=== PATIENT | male | born 1995 | race Caucasian/White ===

== ENCOUNTER 2019-04-03 21:39 | Inpatient (IN) | payer OTHER, BC ==
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
[2019-04-03] MEDS ORDERED: MORPHINE SULFATE 4 MG/ML SYRINGE IVP STA (21:58)
[2019-04-03] MEDS ORDERED: ONDANSETRON 4 MG/2 ML VIAL IVP STA (21:59)
--- NOTE | 2019-04-03 22:26 | XR ---
EXAM: XR Left Forearm, 2 Views CLINICAL HISTORY: Pain TECHNIQUE: Frontal and lateral views of the left forearm. COMPARISON: No relevant prior studies available. FINDINGS: Bones/joints: Unremarkable. No acute fracture. No dislocation. Soft tissues: Moderate edema within the soft tissues of the forearm. No soft tissue gas or foreign body. IMPRESSION: Moderate edema within the soft tissues of the forearm. Findings may be infectious.
--- NOTE | 2019-04-03 22:35 | XR ---
EXAM: XR Left Humerus, 2 or More Views CLINICAL HISTORY: ITS.REASON XR Reason: Pain TECHNIQUE: Frontal and lateral views of the left humerus. COMPARISON: No relevant prior studies available. FINDINGS: Bones/joints: No acute fracture. No dislocation. Soft tissues: Possible laceration/emphysema along the lateral aspect of the soft tissues near the mid shaft of the humerus. IMPRESSION: No acute osseous findings.
[2019-04-03] MEDS ORDERED: LIDOCAINE 1% INJ 10MG/ML (20 ML MDV) SQ ONE (22:55)
[2019-04-03] MEDS ORDERED: HYDROmorphone 1 MG/ML 1 ML SYRINGE IVP STA (22:58)
[2019-04-03] MEDS ORDERED: DIPH,PERTUS(ACELL)TETVAC-LF 0.5 ML VIAL IM ONE (22:59)
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
[2019-04-03 23:38] LABS: Basophils % (A) 0 %; Eosinophils # (A) 0.1 k/uL (0-0.7); Eosinophils % (A) 1 %; HCT 42.9 % (39.0-53.0); Lymphocytes # (A) 1.8 k/uL (1.0-4.8); Lymphocytes % (A) 18 %; MCH 26.4 pg (25.0-35.0); MCHC 32.7 g/dL (31.0-37.0); MCV 80.9 fL (80.0-100.0); Mean Platelet Volume 10.2; Monocytes # (A) 0.6 k/uL (0-1.0); Monocytes % (A) 6 %; Neutrophils # (A) 7.4 k/uL (1.3-7.7); Neutrophils % (A) 73 %; Platelet Count 195 k/uL (150-450); RBC 5.31 m/uL (4.30-5.90); RDW 13.8 % (11.5-15.5); WBC 10.1 k/uL (3.8-10.6)
[2019-04-03 23:47] LABS: ALT 152 U/L (21-72); AST 74 U/L (17-59); African American GFR (CKD) >90 (>60 ml/min/1.73 sqM); Alcohol <10 mg/dL; Alkaline Phosphatase 87 U/L (38-126); Anion Gap 14 mmol/L; Blood Urea Nitrogen 15 mg/dL (9-20); Carbon Dioxide 20 mmol/L (22-30); Chloride 105 mmol/L (98-107); Glucose 110 mg/dL (74-99); Potassium 4.2 mmol/L (3.5-5.1); Sodium 139 mmol/L (137-145); Total Bilirubin 0.6 mg/dL (0.2-1.3); Total Protein 7.8 g/dL (6.3-8.2)
[2019-04-03 23:54] LABS: Prothrombin Time 10.6 sec (9.0-12.0)
[2019-04-04 00:11] LABS: Partial Thromboplastin Time 20.9 sec (22.0-30.0)
[2019-04-04] MEDS ORDERED: ACETAMINOPHEN TAB 325 MG TAB PO PRN (00:41)
[2019-04-04] MEDS ORDERED: NALOXONE 0.4 MG/ML 1 ML VIAL IV PRN (00:41)
[2019-04-04] MEDS ORDERED: HYDROcodone/APAP 5-325MG 1 EACH TAB PO PRN (00:41)
[2019-04-04] MEDS: SODIUM CHLORIDE 0.9% 1,000 ML IV SCH ×4 (01:03→22:04)
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
[2019-04-04] MEDS: MORPHINE SULFATE 4 MG/ML SYRINGE IV PRN ×4 (04:39→18:14)
[2019-04-04] MEDS: FAMOTIDINE 20 MG TAB PO SCH ×2 (08:34→22:04)
[2019-04-04] MEDS ORDERED: SODIUM CHLORIDE 0.9% 1,000 ML IV ONE (09:36)
[2019-04-04] MEDS ORDERED: DEXAMETHASONE SOD PHOSPHATE 10 MG/ML 1 ML VIAL IV ONE ×2 (10:10→22:10)
[2019-04-04] MEDS ORDERED: ONDANSETRON 4 MG/2 ML VIAL IVP ONE ×2 (10:12→22:12)
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
[2019-04-04 11:18] LABS: Appearance,Urine Clear (Clear); Bilirubin,Urine Negative (Negative); Blood,Urine Negative (Negative); Color,Urine Yellow; Glucose,Urine (UA) Negative (Negative); Ketones,Urine 1+ (Negative); Leukocyte Esterase,Urine Negative (Negative); Nitrite,Urine Negative (Negative); Protein,Urine Trace (Negative); Specific Gravity,Urine 1.034 (1.001-1.035); Urobilinogen,Urine <2.0 mg/dL (<2.0)
[2019-04-04 13:02] LABS: Basophils % (A) 0 %; Eosinophils % (A) 0 %; HCT 38.6 % (39.0-53.0); HGB 12.7 gm/dL (13.0-17.5); Lymphocytes % (A) 13 %; MCH 27.3 pg (25.0-35.0); Mean Platelet Volume 10.1; Monocytes # (A) 0.9 k/uL (0-1.0); Monocytes % (A) 11 %; Neutrophils # (A) 5.6 k/uL (1.3-7.7); Neutrophils % (A) 74 %; Platelet Count 160 k/uL (150-450); RBC 4.65 m/uL (4.30-5.90); WBC 7.5 k/uL (3.8-10.6)
[2019-04-04 13:11] LABS: ALT 106 U/L (21-72); AST 49 U/L (17-59); African American GFR (CKD) >90 (>60 ml/min/1.73 sqM); Albumin 3.6 g/dL (3.5-5.0); Alkaline Phosphatase 55 U/L (38-126); Anion Gap 6 mmol/L; Blood Urea Nitrogen 13 mg/dL (9-20); Calcium 8.4 mg/dL (8.4-10.2); Carbon Dioxide 26 mmol/L (22-30); Chloride 106 mmol/L (98-107); Glucose 96 mg/dL (74-99); Potassium 3.9 mmol/L (3.5-5.1); Sodium 138 mmol/L (137-145); Total Bilirubin 0.8 mg/dL (0.2-1.3)
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
[2019-04-04] MEDS: ACETAMINOPHEN IV (For NPO) 1,000 MG in EMPTY BAG 1 BAG IVPB SCH ×3 (14:18→22:12)
--- NOTE | 2019-04-04 20:43 | P.HPADDEND ---
H&P Addendum H&P Addendum Date: 04/04/19 Patient seen and evaluated. Family members at bedside provides additional history of large gaping wound along the anterior aspect of the axilla. He had been earlier seen by orthopedic providers. Separately, moderate debris of the wound warranting washout. At bedside strength intact. Seam Presser 4+ out of 5 strength bilateral hands and equal bilaterally. Edema noted along the forearm and arm left. We'll proceed with mechanical debridement washout of wound and closure.
[2019-04-04] MEDS ORDERED: IV FLUID CONTINUATION 1,000 ML IV ONE ×2 (21:30)
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
[2019-04-04] MEDS ORDERED: LIDOCAINE 1% INJ 10MG/ML (20 ML MDV) ONE (22:29)
[2019-04-04] MEDS ORDERED: fentaNYL (PF) 50 MCG/ML 2 ML AMP ONE (22:29)
[2019-04-04] MEDS ORDERED: SUCCINYLCHOLINE CHLORIDE 100 MG/5 ML SYR IV ONE (22:29)
[2019-04-04] MEDS ORDERED: PROPOFOL 10 MG/ML 20 ML VIAL IV ONE (22:29)
[2019-04-04] MEDS ORDERED: MIDAZOLAM 2 MG/2 ML VIAL ONE (22:29)
[2019-04-04] MEDS ORDERED: ceFAZolin 1,000 MG VIAL IVPB ONE (22:48)
[2019-04-04] MEDS ORDERED: LACTATED RINGERS 1,000 ML IV ONE (22:55)
[2019-04-04] MEDS ORDERED: BACITRACIN OINT 1 EACH PACKET TOPICAL ONE (23:00)
[2019-04-05] MEDS ORDERED: ONDANSETRON 4 MG/2 ML VIAL IVP PRN (00:39)
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
[2019-04-05 00:57] LABS: Amphetamine Screen,Urine Not Detected (NotDetected); Barbiturate Screen,Urine Not Detected (NotDetected); Benzodiazepines Screen,Urine Not Detected (NotDetected); Cocaine Screen,Urine Not Detected (NotDetected); Methadone Screen, Urine Not Detected (NotDetected); Opiate Screen,Urine Detected (NotDetected); Oxycodone Screen, Urine Not Detected (NotDetected); Phencyclidine Screen,Urine Not Detected (NotDetected); Tricyclic Antidepressant,Urine Not Detected (NotDetected); Urn Cannabinoid Scrn Not Detected (NotDetected)
[2019-04-05] MEDS: MORPHINE SULFATE 4 MG/ML SYRINGE IV PRN ×2 (04:31→09:27)
[2019-04-05] MEDS: SODIUM CHLORIDE 0.9% 1,000 ML IV SCH ×3 (04:38→15:16)
[2019-04-05] MEDS: ACETAMINOPHEN IV (For NPO) 1,000 MG in EMPTY BAG 1 BAG IVPB SCH ×2 (05:39→13:30)
[2019-04-05] MEDS: FAMOTIDINE 20 MG TAB PO SCH ×2 (07:52→20:26)
[2019-04-05] MEDS: HEPARIN SODIUM,PORCINE 5,000 UNIT/ML 1 ML VIAL SQ SCH ×2 (07:52→20:26)
[2019-04-05] MEDS ORDERED: HYDROmorphone 2 MG/ML 1 ML SYRINGE IVP ONE (12:00)
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
[2019-04-06] MEDS: SODIUM CHLORIDE 0.9% 1,000 ML IV SCH ×3 (07:09→21:28)
[2019-04-06 07:43] LABS: Basophils % (A) 0 %; Eosinophils # (A) 0.1 k/uL (0-0.7); Eosinophils % (A) 1 %; HCT 32.9 % (39.0-53.0); HGB 10.9 gm/dL (13.0-17.5); Lymphocytes # (A) 1.5 k/uL (1.0-4.8); Lymphocytes % (A) 20 %; MCH 27.6 pg (25.0-35.0); MCHC 33.1 g/dL (31.0-37.0); MCV 83.4 fL (80.0-100.0); Mean Platelet Volume 9.7; Monocytes # (A) 0.6 k/uL (0-1.0); Monocytes % (A) 8 %; Neutrophils # (A) 5.3 k/uL (1.3-7.7); Neutrophils % (A) 70 %; Platelet Count 140 k/uL (150-450); RBC 3.94 m/uL (4.30-5.90); RDW 14.3 % (11.5-15.5); WBC 7.6 k/uL (3.8-10.6)
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
[2019-04-06 07:56] LABS: ALT 60 U/L (21-72); AST 43 U/L (17-59); African American GFR (CKD) >90 (>60 ml/min/1.73 sqM); Albumin 3.1 g/dL (3.5-5.0); Alkaline Phosphatase 58 U/L (38-126); Anion Gap 7 mmol/L; Blood Urea Nitrogen 7 mg/dL (9-20); Calcium 8.1 mg/dL (8.4-10.2); Carbon Dioxide 28 mmol/L (22-30); Chloride 103 mmol/L (98-107); Glucose 117 mg/dL (74-99); Potassium 3.2 mmol/L (3.5-5.1); Sodium 138 mmol/L (137-145); Total Bilirubin 0.4 mg/dL (0.2-1.3); Total Protein 5.5 g/dL (6.3-8.2)
[2019-04-06] MEDS: FAMOTIDINE 20 MG TAB PO SCH ×2 (08:00→21:27)
[2019-04-06] MEDS: HEPARIN SODIUM,PORCINE 5,000 UNIT/ML 1 ML VIAL SQ SCH ×2 (08:00→21:28)
[2019-04-06] MEDS: POTASSIUM CHLORIDE ER 20 MEQ TAB.ER PO SCH ×3 (09:54→14:00)
[2019-04-06] MEDS: DOCUSATE 100 MG CAP PO SCH ×2 (14:00→21:27)
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
[2019-04-07] MEDS: FAMOTIDINE 20 MG TAB PO SCH (07:56)
[2019-04-07] MEDS: HEPARIN SODIUM,PORCINE 5,000 UNIT/ML 1 ML VIAL SQ SCH (07:57)
[2019-04-07] MEDS: DOCUSATE 100 MG CAP PO SCH (07:57)
[2019-04-07] MEDS: SODIUM CHLORIDE 0.9% 1,000 ML IV SCH (07:57)
[2019-04-07 08:05] VITALS: BP 125/80; PULSE 91; RESP 16; TEMP 98.6
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
[2019-04-07] MEDS ORDERED: SILVER sulfADIAZINE Cream 400 GM 1 APPLIC APPLIC TOPICAL SCH (09:00)
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
--- NOTE | 2019-04-07 18:43 | P.PN ---
Progress Note - Text Progress Note Date: 04/07/19 At bedside, wound VAC discontinued. Slight odor noted along wounds. Wounds were cleansed with antibacterial soap and water and pat dry. Silvadene dressing placed. Demarcation noted of the posterior upper left arm. Closure of incision site at left axilla without cellulitis or infection. Dressing change demonstrated to patient's mother bedside. JENNA serous. He will be discharged with antibiotics including silvadene creme
== END 2019-04-07 17:00 | disposition home health service (06) | DRG 909 ==
LOC: EC 21:39 → 4SSUR 04-04 00:42 → OBSVTOIN 04-04 14:32
PROVIDERS: ADMIT Surgery Plastic and Reconstructive Surgery; ATTEND Surgery Plastic and Reconstructive Surgery
PROC: 0JDF0ZZ Extraction of Left Upper Arm Subcutaneous Tissue and Fascia, Open Approach (ICD-10-PCS; principal; 2019-04-04 10:05)
DX: S41.122A Laceration with foreign body of left upper arm, initial encounter (principal); E66.9 Obesity, unspecified; S40.022A Contusion of left upper arm, initial encounter; R20.0 Anesthesia of skin; R74.8 Abnormal levels of other serum enzymes; R00.0 Tachycardia, unspecified; T14.8XXA Other injury of unspecified body region, initial encounter; Z68.33 Body mass index [BMI] 33.0-33.9, adult; V58.5XXA Driver of pick-up truck or van injured in noncollision transport accident in traffic accident, initial encounter; Y92.410 Unspecified street and highway as the place of occurrence of the external cause
CPT/HCPCS: 36415; 71045; 80053; 80176; 80306; 80320; 81003; 83605; 83735; 84132; 84484; 85025; 85610; 85730; 86850; 86900; 86901; 87070; 87075; 87077; 87186; 87205; 90471; 90715; 93005; 94760; 96365; 96375; 99285

== ENCOUNTER 2019-04-15 08:06 | Day surgery (SDC) | payer OTHER, BC ==
[2019-04-14 12:11] VITALS: BMI 32.5
[~2019-04-15 08:06] MED LIST: DEXAMETHASONE SOD PHOSPHATE 10 MG/ML 1 ML VIAL IV ONE; HYDROmorphone 0.5 MG/0.5 ML SYRINGE IVP PRN; LACTATED RINGERS 1,000 ML IV SCH; LIDOCAINE 1% 20 ML VIAL (10MG/ML) FOR IV START INTRADERMA PRN; MIDAZOLAM 2 MG/2 ML VIAL IV PRN; ONDANSETRON 4 MG/2 ML VIAL IVP ONE; Pre Op ABX Message 1 EACH MISC MISCELLANE ONE; SCOPOLAMINE 1.5MG/72HR PATCH TRANSDERM ONE
[2019-04-15] MEDS ORDERED: LACTATED RINGERS 1,000 ML IV ONE ×2 (08:33→12:18)
[2019-04-15] MEDS ORDERED: SUCCINYLCHOLINE CHLORIDE VIAL 200 MG/10 ML VIAL IV ONE (10:11)
[2019-04-15] MEDS ORDERED: PROPOFOL 10 MG/ML 20 ML VIAL IV ONE (10:11)
[2019-04-15] MEDS ORDERED: LIDOCAINE 1% INJ 10MG/ML (20 ML MDV) ONE (10:11)
[2019-04-15] MEDS ORDERED: fentaNYL (PF) 50 MCG/ML 2 ML AMP ONE (10:11)
[2019-04-15] MEDS ORDERED: MIDAZOLAM 2 MG/2 ML VIAL ONE (10:11)
[2019-04-15] MEDS ORDERED: SODIUM CHLORIDE 0.9% 100 ML with ceFAZolin 2,000 MG IV ONE ×2 (10:30)
[2019-04-15] MEDS ORDERED: ceFAZolin 3,000 MG in SODIUM CHLORIDE 0.9% IRRIGATIO 3,000 ML IRRIGATION ONE (10:31)
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
[2019-04-15 11:34] VITALS: TEMP 97.2
[2019-04-15 12:34] VITALS: RESP 18
[2019-04-15 13:02] VITALS: BP 118/80; PULSE 90
== END 2019-04-15 13:14 | disposition home or self-care (01) ==
LOC: OR 08:06
PROVIDERS: ATTEND Orthopaedic Surgery
DX: L02.818 Cutaneous abscess of other sites (principal); S41.112A Laceration without foreign body of left upper arm, initial encounter; S50.02XA Contusion of left elbow, initial encounter; S44.30XA Injury of axillary nerve, unspecified arm, initial encounter; S40.812A Abrasion of left upper arm, initial encounter; Z79.899 Other long term (current) drug therapy
CPT/HCPCS: 11043; 87070; 87205; 87075; 87077; 87186; J2250; J0330; J1100; J2405; J0690; J2001; J3010; J2704

== ENCOUNTER 2019-05-02 09:07 | Day surgery (SDC) | payer BC, OTHER ==
[2019-05-02] MEDS ORDERED: LIDOCAINE 1% 20 ML VIAL (10MG/ML) FOR IV START INTRADERMA ONE (10:26)
[2019-05-02] MEDS ORDERED: LACTATED RINGERS 1,000 ML IV ONE (10:26)
[2019-05-02] MEDS ORDERED: ONDANSETRON 4 MG/2 ML VIAL IVP ONE ×2 (10:26→10:35)
[2019-05-02] MEDS ORDERED: DEXAMETHASONE SOD PHOSPHATE 10 MG/ML 1 ML VIAL IV ONE ×2 (10:26→10:35)
[2019-05-02] MEDS ORDERED: MIDAZOLAM (PF) 2 MG/2 ML VIAL IV ONE (10:27)
[2019-05-02] MEDS ORDERED: LACTATED RINGERS 1,000 ML IV SCH (10:35)
[2019-05-02] MEDS ORDERED: SCOPOLAMINE 1.5MG/72HR PATCH TRANSDERM ONE (10:35)
[2019-05-02] MEDS ORDERED: MIDAZOLAM 2 MG/2 ML VIAL IV PRN (10:35)
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
[2019-05-02] MEDS ORDERED: MIDAZOLAM 2 MG/2 ML VIAL ONE (11:01)
[2019-05-02] MEDS ORDERED: SUCCINYLCHOLINE CHLORIDE 100 MG/5 ML SYR IV ONE (11:01)
[2019-05-02] MEDS ORDERED: PROPOFOL 10 MG/ML 20 ML VIAL IV ONE (11:01)
[2019-05-02] MEDS ORDERED: KETAMINE 10 MG/ML 20 ML VIAL ONE (11:01)
[2019-05-02] MEDS ORDERED: fentaNYL (PF) 50 MCG/ML 2 ML AMP ONE (11:01)
[2019-05-02] MEDS ORDERED: LIDOCAINE 1% INJ 10MG/ML (20 ML MDV) ONE (11:01)
[2019-05-02] MEDS ORDERED: MINERAL OIL 30 ML CUP TOPICAL ONE (11:37)
[2019-05-02] MEDS: HYDROmorphone 0.5 MG/0.5 ML SYRINGE IVP PRN ×2 (12:23→12:28)
[2019-05-02 12:28] VITALS: TEMP 97.1
[2019-05-02 12:31] VITALS: RESP 16
[2019-05-02 14:04] VITALS: BP 106/71; PULSE 92
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
== END 2019-05-02 14:43 | disposition home or self-care (01) ==
LOC: OR 09:07
PROVIDERS: ATTEND Thoracic Surgery (Cardiothoracic Vascular Surgery)
DX: L98.491 Non-pressure chronic ulcer of skin of other sites limited to breakdown of skin (principal); A49.02 Methicillin resistant Staphylococcus aureus infection, unspecified site
CPT/HCPCS: 15100; J2250 ×2; J1100; J0690; J2405; J2001; J3010; J0330; J2704; J1170

== ENCOUNTER 2024-12-26 20:15 | Emergency (ER) | payer BC, OTHER ==
[2024-12-26 20:38] VITALS: TEMP 98.4
[2024-12-26 21:33] VITALS: RESP 20
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
[2024-12-26 21:39] LABS: Influenza A Not Detected (Not Detectd); Influenza B Not Detected (Not Detectd); RSV Not Detected (Not Detectd)
[2024-12-26] MEDS: methylPREDNISolone SOD SUCCI 125 MG/2 ML VIAL IM ONE (22:05)
--- NOTE | 2024-12-26 22:41 | XR ---
EXAMINATION TYPE: XR chest 2V DATE OF EXAM: 12/26/2024 9:19 PM COMPARISON: 07/13/2019 CLINICAL INDICATION: Male, 29 years old with history of Dyspnea, TECHNIQUE: XR chest 2V view(s) obtained. FINDINGS: The heart size is normal. The pulmonary vasculature is normal. Posterior left lower lobe infiltrate and consolidation is present. Correlate for pneumonia. Atypical pneumonia could be considered. Some mild infiltrate is within the mid right lung IMPRESSION: 1. Posterior left lower lobe consolidation. Correlate for pneumonia and atypical pneumonia 2. Mild infiltrate right midlung [facility], Workstation: [facility], 12/26/2024 10:38 PM
[2024-12-26] MEDS: cefTRIAXone 1,000 MG VIAL (IM USE) IM STA (22:57)
[2024-12-26] MEDS: cefTRIAXone 1 GM VIAL IM STA ×2 (22:58→23:18)
[2024-12-26] MEDS: AZITHROMYCIN 500 MG TAB PO STA (23:16)
[2024-12-26] MEDS: AMOXIC-POT CLAV 875-125MG 1 EACH TAB PO STA (23:16)
[2024-12-26 23:49] VITALS: BP 139/69; PULSE 128
== END 2024-12-26 23:49 | disposition home or self-care (01) ==
LOC: EC 20:15
DX: J18.9 Pneumonia, unspecified organism (principal)
CPT/HCPCS: 87636; 71046; 99285; 96372; J0696; J2919